=== PATIENT | female | born 1995 | race American Indian/Alaskan Native ===

== ENCOUNTER 2017-07-22 12:13 | Emergency (ER) | payer MEDICAID, OTHER ==
[2017-07-22 14:30] VITALS: BP 118/63
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
== END 2017-07-22 16:35 ==
LOC: ED 12:13
DX: T74.21XA Adult sexual abuse, confirmed, initial encounter (principal); F12.10 Cannabis abuse, uncomplicated
CPT/HCPCS: 99282

== ENCOUNTER 2019-03-10 21:48 | Emergency (ER) | payer OTHER, MEDICAID ==
--- NOTE | 2019-03-10 22:18 | Emergency Department Report ---
Blank Doc - Documentation Documentation: 24 y/o female comes in for laceration to left hand first digit.
[2019-03-10 22:20] VITALS: BP 129/88
[2019-03-11] MEDS ORDERED: XYLOCAINE 2% INFILTRATI STA (00:43)
[2019-03-11] MEDS ORDERED: BOOSTRIX IM ONE (00:44)
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
== END 2019-03-11 03:38 | disposition home or self-care (01) ==
LOC: ED 21:48
DX: S61.211A Laceration without foreign body of left index finger without damage to nail, initial encounter (principal); W26.0XXA Contact with knife, initial encounter; Y93.89 Activity, other specified; Y92.098 Other place in other non-institutional residence as the place of occurrence of the external cause; Y99.8 Other external cause status
CPT/HCPCS: 90471; 90715; 99282